=== PATIENT | female | born 1935 | race Caucasian/White ===

== ENCOUNTER → 2017-01-27 | Outpatient (CLI) | payer MEDICARE ==
[~2017-01-27] MED LIST: ASCO-285 PO; ASPI-558 PO; Albuterol; BUDE180A IH; CHOL100018 PO; DOCU-118 PO; FERR1TAB86 PO; FISH1CAP59 PO; FORM20VI IH; GABA-215 PO; GUAI600T53 PO; LORA-326 PO; MELA3TAB24 PO; METO100T97 PO; MULT-806 PO; PRAV10TA24 PO; RANI-197 PO; [UNRECOGNIZED DRUG - CODE] PO; [UNRECOGNIZED DRUG - CODE] PO; [UNRECOGNIZED DRUG - CODE] PO
--- NOTE | 2017-01-27 10:47 | DI ---
INDICATION: ITS.REASON: J18.9 PNEUMONIA UNSPECIFIED PROCEDURE: CHEST 2-VIEWS UPRIGHT (PA \T\ LAT) Encounter: Initial Comparison: December 02, 2016 Findings: The lungs show no focal airspace consolidation. Hyperinflation. There is no pleural effusion or pneumothorax. The heart size, pulmonary vascularity and mediastinal contours are unchanged. Prior CABG and cardiac valve replacement. IMPRESSION: No acute cardiopulmonary disease. .
== END ==
LOC: IMA 10:18
PROVIDERS: ATTEND Internal Medicine
DX: R91.8 Other nonspecific abnormal finding of lung field (principal); Z95.1 Presence of aortocoronary bypass graft; Z95.2 Presence of prosthetic heart valve